=== PATIENT | male | born 1950 | race Caucasian/White ===

== ENCOUNTER → 2017-12-21 | Outpatient (CLI) | payer OTHER ==
[~2017-12-21] MED LIST: LISI-1116 PO
[2017-12-21 09:53] LABS: BLOOD UREA NITROGEN 16 mg/dl (7-18); CARBON DIOXIDE 31 mmol/L (21-32); CHOLESTEROL 182 mg/dl (0-200); CREATININE 1.03 mg/dl (0.60-1.40); GLUCOSE 84 mg/dl (70-99); POTASSIUM 3.9 mmol/L (3.5-5.1); SODIUM 141 mmol/L (136-145)
[2017-12-21 09:56] LABS: LDL CHOLESTEROL CALCULATED 106 mg/dl
== END | disposition home or self-care (01) ==
LOC: C.LAB 07:01
DX: Z13.220 Encounter for screening for lipoid disorders (principal); I10 Essential (primary) hypertension